=== PATIENT | male | born 1950 | race Caucasian/White ===

== ENCOUNTER 2020-09-16 15:27 | Emergency (ER) | payer MEDICARE, MEDICAID ==
[~2020-09-16] VITALS: Ht 195.6 cm; Wt 120.0 kg
[2020-09-16] MEDS ORDERED: KETOROLAC 15MG/ML VIAL IV ONE (17:00)
[2020-09-16 18:38] LABS: HEMATOCRIT. 35.1 % (42.0-52.0); HEMOGLOBIN. 12.1 g/dL (14.0-18.0); MEAN CORPUSCULAR HEMOGLOBIN 31.2 pg (28.0-32.0); MEAN CORPUSCULAR VOLUME 90.8 fL (80.0-94.0); MEAN PLATELET VOLUME 10.6 fl (7.4-10.4); PLATELET 182 x1000/uL (130-400); RED BLOOD CELL COUNT 3.86 mill/uL (4.7-6.1); RED CELL DISTRIBUTION WIDTH 13.6 % (11.6-14.6)
[2020-09-16 18:43] LABS: CHLORIDE 110 mEq/L (98-107)
[2020-09-16 18:47] LABS: INR 1.4; PARTIAL THROMBOPLASTIN TIME 30.5 sec (23.4-31.0)
[2020-09-16 19:00] LABS: CLARITY URINE TURBID (CLEAR); COLOR URINE ORANGE (YELLOW); KETONES URINE TRACE (NEGATIVE); LEUKOCYTE ESTERASE URINE 3+ (NEGATIVE); NITRITE URINE POSITIVE (NEGATIVE); OCCULT BLOOD URINE 3+ (NEGATIVE); PH URINE 5.5 (4.5-8.0); PROTEIN URINE 2+ (NEGATIVE); SPECIFIC GRAVITY URINE 1.019 (1.005-1.030)
[2020-09-16 19:01] LABS: PLATELET ESTIMATE NORMAL
[2020-09-16] MEDS ORDERED: CEFTRIAXONE 1 G PREMIX 50 ML IV ONE (19:45)
[2020-09-16] MEDS ORDERED: SODIUM CHLORIDE 0.9% 1,000 ML IV ONE (19:45)
[2020-09-16] MEDS ORDERED: NAPR-679 MT (19:57)
[2020-09-16 21:15] VITALS: BP 141/90
== END 2020-09-16 21:19 | disposition home or self-care (01) ==
LOC: ER 15:27
DX: M25.561 Pain in right knee (principal); N39.0 Urinary tract infection, site not specified; I10 Essential (primary) hypertension; I48.91 Unspecified atrial fibrillation; D64.9 Anemia, unspecified; Z91.81 History of falling; Z96.651 Presence of right artificial knee joint
CPT/HCPCS: 36415; 71045; 73560; 80053; 81003; 83880; 84484; 85025; 85610; 85730; 87077; 87086; 87186; 93005; 93970; 96365; 96375; 99285; J0696; J7030; J1885